=== PATIENT | female | born 1945 | race Caucasian/White ===

== ENCOUNTER 2017-07-05 10:34 | Emergency (ER) | payer MEDICARE ==
[~2017-07-05] VITALS: Ht 157.5 cm; Wt 67.8 kg
[~2017-07-05 10:34] MED LIST: CELEXA20 MG PO; COREG 12.5 MG12.5 MG PO; CRESTOR10 MG PO; GABAPENTIN300 MG PO; LEVOTHYROXINE0.05 M2 PO; LISINOPRIL/HCTZ1 TA3 PO; LOSARTAN POTASS50 MG PO; METOPROLOL TAR100 MG PO; NORVASC 10MG. T10 MG PO; OMEPRAZOLE D/R20 MG PO; PROTONIX 40MG T40 MG PO; QVAR0.08 MG/AC IH; TRICOR 145 MG145 MG PO; VITAMIN B121 TA1 PO; VITAMIN D50000 I1 PO
[2017-07-05] MEDS ORDERED: BISOPROLOL FUMA10 MG PO (10:51)
--- NOTE | 2017-07-05 11:05 | Emergency Room Report ---
History of Present Illness Time Seen by [id number] Presenting Problem in Triage Pt arrived:Ambulance Stretcher Presenting Problem:RIGHT HIP PAIN THAT RADIATES DOWN THE LEG IN TO FOOT FOR 3 DAYS. PT DENIES FALLS AND OTHER TRAUMA Onset of symptoms date/time:/ or onset unknown for:MEDICAL HX UNKNOWN Treatment Prior to Arrival: TRAMADOL AND ZOFRAN PER EMT ENROLLMENT ELIGIBILITY REPRESENTATIVE Provided by:EMT Sepsis Risk Assessment: Temp: 98.4 B/P: 127/64 MAP: 85 Pulse: 66 Resp: 18 Recent fever? N Clinical Suspician of Infection? N Mental Status: 1 - Regular (Normal Baseline) Sepsis Risk:Low Sepsis Risk Have you (or family members/close friends) recently traveled outside the [place]? N If Yes, where/when: Have you had exposure to infectious disease within the past month? N TB? Other? Specify: Patient states she has RIGHT leg pain radiating up from her foot towards her hip area she states she can barely stand and bear weight on the leg she states it's been there since Sunday she denies any falls or trauma. She also states that she has been coughing up some green phlegm recently she also states she has some nausea and is holding an emesis bag. Denies any fevers or chills he denies any whole-body ache denies any abdominal pain chest pain or headache. He states her RIGHT leg hurts when she moves moderate and achy pain. Denies fevers or chills ALLERGIES Coded Allergies: Penicillins (I-HIVES 07/05/17) Home Medications Reported Medications Rosuvastatin Calcium (Crestor) 10 MG PO QHS AMLODIPINE BESYLATE (Norvasc) 10 MG PO DAILY Lisinopril & Hctz (Lisinopril-Hctz 10-12.5 MG Tab) 2 TAB PO DAILY Carvedilol (Coreg 12.5Mg) 12.5 MG PO BID Levothyroxine Sodium 0.05 MG PO DAILY Gabapentin (Gabapentin 300MG) 300 MG PO BID Fenofibrate 145 MG PO QHS ERGOCALCIFEROL (VITAMIN D2) (Vitamin D2) 50,000 IUNITS PO SUN,SUN CITALOPRAM HYDROBROMIDE (Citalopram HBr) 20 MG PO DAILY Omeprazole 20 MG PO DAILY Beclomethasone Dipropionate (Qvar 80MCG Inhaler) 2 PUFFS IH BID Bisoprolol Fumarate 10 MG PO QHS #30 History Medical History General CAD? No Angina: Yes CO: No Hypertension? Yes Hyperlipidemia? Yes CHF? No DVT? Yes COPD? Yes Asthma? Yes Anemia? No GERD? No Gastric ulcers? No GI Bleed? No Hernia? No Thyroid Problems? Yes Hypothyroidism? Yes CVA? No Seizures? No Diabetes? No End Stage Renal Disease? No UTI? Yes Stones? Yes GB Disease: Yes Nephritic Syndrome? No Asplenia? No Hepatitis? No Sickle Cell Disease? No Arthritis? Yes Migraines? No Cataracts? No Glaucoma? No MRSA? No TB? No Anxiety? Yes Depression? Yes Cancer? No Immunization Hx DT/Tetanus > 10 Years Ago Flu [id number] Flu Season Pneumonia Received In Past Surgical Hx Previous Surgery?Y BACK SURGERY HYSTERECTOMY L FOOT GALLBLADDER X2 Appendectomy Family History Family Hx Diabetes No CAD No Hypertension Yes Hyperlipidemia Yes Cancer No TB No Social History Smoking Hx Smoker: Never Smoker Tobacco: No Alcohol Alcohol: No Review of Systems All Other Systems Reviewed and Negative Physical Exam Vital Signs Vital Signs Date Time Temp Pulse Resp B/P Pulse O2 O2 Flow FiO2 Ox Delivery Rate 07/05 1349 18 07/05 1341 98.3 67 16 138/73 98 07/05 1213 98.4 64 16 158/64 100 07/05 1138 15 07/05 1036 98.4 66 18 127/64 100 General Appearance: Nontoxic Head: Normocephalic, without obvious abnormality, atraumatic. Eyes: conjunctiva/corneas clear ENT: Mucous membranes dry. Neck: No jugular venous distention. Cardiac: regular rate and rhythm Lungs: rhonchi to auscultation bilaterally Abdomen: Nontender, Nondistended, positive bowel sounds, no rebound : No CVA tenderness Extremities: no edema Musculoskeletal: No chest wall tenderness Patient has RIGHT hip tenderness RIGHT sciatic notch tenderness she also states she has tenderness in her RIGHT foot. RIGHT foot has no ecchymosis no swelling. 2+ pulses capillary refill intact Sensation intact She has pain in the hip with straight leg raise on the RIGHT. Skin: No rashes or lesions to exposed skin. Neurologic: Alert. No gross focal deficits Psychiatric: Normal affect (Clifford GAXIOLA, Bhavik) General Appearance normal appearance Respiratory Status No: respiratory distress. Cardiovascular normal exam Neurologic alert Medical Decision Making LABS/Meds/Orders Pt receiving controlled substance in ED? Yes Comment Foot x-ray read as no fracture by radiologist she noticed at the first MTP some signs that may look like gout I did reexamine the patient's first MTP he is nontender there Chest x-ray read as no acute disease by radiologist hip and lumber Films read as arthritis by radiologist Results/Orders Laboratory Tests 07/05/17 1240: Sodium 136, Potassium 4.2, Chloride 102, Carbon Dioxide 28, BUN 25 H, Creatinine 1.3 H, Estimated Creat Clear 42 L, Estimated GFR (MDRD) 40 L, Glucose 131 H, Calcium 9.3, Total Bilirubin 0.6, AST 20, ALT 20, Alkaline Phosphatase 97, Total Protein 6.9, Albumin 3.6, Globulin 3.3 H, Albumin/ Globulin Ratio 1.1, Lipase 109, WBC 12.3 H, RBC 4.85, Hgb 12.8, Hct 39.5, MCV 81.6 L, RDW 15.0, Plt Count 252, MPV 8.2, Gran % 82.9 H, Gran # 10.2 H, Lymphocytes % 11.9, Monocytes % 3.5, Eosinophils % 1.4, Basophils % 0.3, Lymphocytes # 1.5, Monocytes # 0.4, Eosinophils # 0.2, Basophils # 0.0, PUBS MCHC 32.4, MCH 26.4 L Current Medication Orders Sig/Wenceslao Start time Last Medication Dose Route Stop Time Status Admin Morphine Sulfate 0 .STK-MED ONE 07/05 1347 DC .ROUTE Morphine Sulfate 4 MG ONCE ONE 07/05 1345 DC 07/05 IV 07/05 1346 1349 Ondansetron HCl 0 .STK-MED ONE 07/05 1121 DC .ROUTE Sodium Chloride 1,000 ML .STK-MED ONE 07/05 1121 DC IV Morphine Sulfate 0 .STK-MED ONE 07/05 1120 DC .ROUTE Morphine Sulfate 2 MG ONCE ONE 07/05 1115 DC 07/05 IV 07/05 1116 1138 Ondansetron HCl 4 MG ONCE ONE 07/05 1115 DC 07/05 IV 07/05 1116 1138 Sodium Chloride 1,000 ML .Q1H1M 07/05 1115 DC 07/05 IV 07/05 1215 1138 Sodium Chloride 10 ML PRN PRN 07/05 111 AC IV 07/06 1102 Orders Procedure Date/time Status LIPASE 07/05 110 Complete CBC WITH AUTO DIFF 07/05 110 Complete CHEM 12 PROFILE 07/05 110 Complete Departure Departure Time of Disposition 1434 Disposition DC Home or Self Care(routine) Clinical Impression Primary Impression: Bronchitis Secondary Impressions: Sciatica Qualifiers: Laterality: right Qualified Code: M54.31 - Sciatica, right side Condition STABLE Patient Instructions Acute Bronchitis, CONTROLLED SUBSTANCE-[facility], Sciatica Discharge Counseling Counseled pt/family regarding diagnosis, test results, R/B of controlled subst., medications/RX, home care, follow up needs Prescriptions Current Visit Scripts Azithromycin (Zithromycin (Z-SARAHI) 250MG Tab) 250 MG PO DAILY #6 TAB TAKE TWO (2) TABLETS ON DAY 1, THEN ONE (1) TABLET DAY #2 THRU #5 PROMETHAZINE HCL (Phenergan 12.5MG Tab (Geq)) 12.5 MG PO Q6HP PRN NAUSEA #6 TAB HYDROCODONE/ACETAMINOPHEN ([place] 5-325 Tablet) 1 TAB PO Q6HP PRN BREAKTHROUGH MOD TO SEV PAIN #10 TAB ED Critical Care Critical Care No at 1441
[2017-07-05 12:47] LABS: HEMOGLOBIN 12.8 g/dL (12.2-16.2); LYMPH # 1.5 K/mm3 (0.7-4.5); LYMPH % 11.9 % (10-50.0)
--- OUTSIDE RECORDS SUMMARY | 2017-07-05 12:54 | External Medical Summary Rpt | CCD ---
Author Author CHARLIE Address Unknown Phone [email or web address] Purpose Continuity of Care Document - 01-12-2017 through 2016
--- OUTSIDE RECORDS SUMMARY | 2017-07-05 12:54 | External Medical Summary Rpt | CCD ---
Author Author , CHARLIE GUERRA Address Unknown Phone [email or web address] [employer] Immunization Name Date Rout CVX Reac Dose Comm Prov Is Faci e tion ent ider Refu lity Give sed n Infl 09-2 0.5 Hist PD20 No PD20 uenz 0-20 mL oric 256 256 a 17 al Quad Info rmat W/Pr ion es - Sour ce Unsp ecif ied Hep 02-2 43 999 Hist H201 No H201 B, 1-20 oric adul 06 al t Info rmat ion - Sour ce Unsp ecif ied Hep 09-0 43 999 Hist H201 No H201 B, 9-20 oric adul 05 al t Info rmat ion - Sour ce Unsp ecif ied Hep 08-0 Intr 43 999 Hist H201 No H201 B, 9-20 amus oric adul 05 cula al t r Info rmat ion - Sour ce Unsp ecif ied
--- OUTSIDE RECORDS SUMMARY | 2017-07-05 12:54 | External Medical Summary Rpt | CCD ---
Author Author , CHARLIE GUERRA Address Unknown Phone [email or web address] Immunization Name Date Rout CVX Reac Dose [...]
--- OUTSIDE RECORDS SUMMARY | 2017-07-05 12:54 | External Medical Summary Rpt ---
Author Author CHARLIE Lala, JONYBRAULIO [employer] Organization [facility] [employer] Address Unknown Phone Unavailable Results Basic metabolic panel in Blood Observa Value Referen Units Interpr Notes Date tion ce etation Range Urea 7 - 18 mg/dL High No Jan 12 nitrogen informati 2016 [Mass/vol on in 10:25 AM ume] in source Serum or data Plasma Calcium 8.5 - mg/dL Normal No Jan 12 [Mass/vol 10.1 informati 2016 ume] in on in 10:25 AM Serum or source Plasma data Chloride 98 - 107 mmoL/L Normal No Jan 12 [Moles/vo informati 2016 lume] in on in 10:25 AM Serum or source Plasma data Carbon 21.0 - mmoL/L Normal No Jan 12 dioxide, 32.0 informati 2017 total on in 10:25 AM [Moles/vo source lume] in data Serum or Plasma Creatinin 0.55 - mg/dL High No Jan 12 e 1.02 informati 2016 [Mass/vol on in 10:25 AM ume] in source Serum or data Plasma Estimated 59- ML/MIN Low REFERENCE Jan 12 RANGE: 2017 glomerula >60 10:25 AM r ML/MIN/1. filtratio 73 SQUARE n rate METERSIf (GF this patient is -A merican, then multiply theresult by 1.210. Glucose 74 - 106 mg/dL High No Jan 12 [Mass/vol informati 2016 ume] in on in 10:25 AM Serum or source Plasma data Potassium 3.5 - 5.1 mmoL/L Normal No Jan 12 informati 2016 [Moles/vo on in 10:25 AM lume] in source Serum or data Plasma Sodium 136 - 145 mmoL/L Normal No Jan 12 [Moles/vo informati 2017 lume] in on in 10:25 AM Serum or source Plasma data Thyroxine (T4) free [Mass/volume] in Serum or Plasma Observa Value Referen Units Interpr Notes Date tion ce etation Range Thyroxine 0.76 - ng/dL Normal No Jan 12 (T4) 1.46 inform2016 free on in 10:25 AM [Mass/vol source ume] in data Serum or Plasma Lipid 1996 panel in Serum or Plasma Observa Value Referen Units Interpr Notes Date tion ce etation Range Cholester < 200 mg/dL No No Dec 16 ol informati informati 2016 [Moles/vo on in on in 10:25 AM lume] in source source Unspecifi data data ed specimen Cholester 40 - 60 MG/DL Normal No Jan 12 ol in HDL inform2016 on in 10:25 AM [Mass/vol source ume] in data Serum or Plasma Cholester 0 - 130 mg/dL Normal No Jan 12 ol in LDL informati 2016 on in 10:25 AM [Mass/vol source ume] in data Serum or Plasma by calculati on Triglycer 30 - 200 mg/dL High No Jan 12 trish inform2016 [Moles/vo on in 10:25 AM lume] in source Serum or data Plasma Cholester 0 - 40 No High No Jan 12 ol in informati inform2016 VLDL on in on in 10:25 AM [Mass/vol source source ume] in data data Serum or Plasma Hepatic function 2000 panel in Serum or Plasma Observa Value Referen Units Interpr Notes Date tion ce etation Range Albumin 3.4 - 5.0 gm/dL Normal No Jan 12 [Mass/vol informati 2016 ume] in on in 10:25 AM Serum or source Plasma data Alkaline 46 - 116 U/L Normal No Dec 16 phosphata 2016 se on in 10:25 AM [Enzymati source c data activity/ volume] in Serum or Plasma Bilirubin 0.0 - 0.2 mg/dL Normal No Jan 12 .direct informati 2016 [Mass/vol on in 10:25 AM ume] in source Serum or data Plasma Bilirubin 0 - 0.9 mg/dL Normal No Jan 12 .indirect informati 2017 on in 10:25 AM [Mass/vol source ume] in data Serum or Plasma Bilirubin 0.2 - 1.0 mg/dL Normal No Jan 12 .total informati 2017 [Mass/vol on in 10:25 AM ume] in source Serum or data Plasma Aspartate 15 - 37 U/L Low No Dec 16 inform2016 aminotran on in 10:25 AM sferase source [Enzymati data c activity/ volume] in Serum or Plasma Alanine 12 - 78 U/L Normal No Jan 12 aminotran informati 2016 sferase on in 10:25 AM [Enzymati source c data activity/ volume] in Serum or Plasma Protein 6.4 - 8.2 gm/dL Normal No Jan 12 [Mass/vol informati 2016 ume] in on in 10:25 AM Serum or source Plasma data Thyrotropin [Units/volume] in Serum or Plasma Observa Value Referen Units Interpr Notes Date tion ce etation Range Thyrotrop 0.358 - uIU/ml Normal No Jan 12 in 3.740 informati 2016 [Units/vo on in 10:25 AM lume] in source Serum or data Plasma
--- OUTSIDE RECORDS SUMMARY | 2017-07-05 12:54 | External Medical Summary Rpt | CCD ---
Author Author CHARLIE Address Unknown Phone [email or web address] Purpose Continuity of Care Document - 01-12-2017 through 2016
--- NOTE | 2017-07-05 13:59 | RADIOLOGY REPORT PS360 ---
CHEST-AP VIEW ONLY HISTORY: cough ORDERING PHYSICIAN: Bhavik Horton MD PATIENT AGE: 72 years COMPARISON: 07/03/2016 FINDINGS: There is mild cardiomegaly without failure. There are old right-sided rib fractures. No lobar consolidation or collapse. Lungs are clear. IMPRESSION: 1. Cardiomegaly. 2. No acute finding. 3. Old right-sided rib fracture
--- NOTE | 2017-07-05 14:01 | RADIOLOGY REPORT PS360 ---
FOOT-RT-3 VIEWS HISTORY: Right foot pain ORDERING PHYSICIAN: Bhavik Horton MD PATIENT AGE: 72 years COMPARISON: None FINDINGS: Minimal osteoarthritic change of the first metatarsophalangeal joint. There may be some minimal periarticular calcification medially with some soft tissue swelling. Mild callus is a consideration. No erosive changes are apparent however. No other significant anomalies. IMPRESSION: 1. Minimal osteoarthritis first MTP joint with questionable periarticular calcification and soft tissue swelling which may be seen with gout
--- NOTE | 2017-07-05 14:03 | RADIOLOGY REPORT PS360 ---
HIP RT 2-3V W/PELVIS IF PERFOR HISTORY: Right hip pain ORDERING PHYSICIAN: Bhavik Horton MD PATIENT AGE: 72 years COMPARISON: None FINDINGS: There are mild osteoarthritic changes of both hips with decrease in the joint space and osteophyte formation of the acetabula. No fracture or dislocation. No lytic or blastic change. IMPRESSION: Osteoarthritis of the hips
--- NOTE | 2017-07-05 14:06 | RADIOLOGY REPORT PS360 ---
EXAM: LUMBAR SPINE 5 VIEWS HISTORY: Low back pain ORDERING PHYSICIAN: Bhavik Horton MD PATIENT AGE: 72 years COMPARISON: None FINDINGS: There is minimal lumbar curvature convex right with mild endplate osteophytes in the lower thoracic spine and at L3, L4, and L5 with degenerative disc disease from L2 to S1 worse at L5-S1. There is 3 mm anterolisthesis of L4. Facet hypertrophic changes are present at L5-S1. No fracture or dislocation. No lytic or blastic change. IMPRESSION: Lumbar spondylosis with degenerative disc disease facet arthritic change and osteophyte formation as detailed above
[2017-07-05] MEDS ORDERED: NORCO 325 MG-51 TAB PO (14:40)
[2017-07-05] MEDS ORDERED: PHENERGAN12.5 M3 PO (14:40)
[2017-07-05] MEDS ORDERED: ZITHROMAX Z PA250 MG PO (14:40)
[2017-07-05 14:51] VITALS: BP 136/78
== END 2017-07-05 14:47 | disposition home or self-care (01) ==
LOC: ER 10:34
PROVIDERS: Emergency Medicine
DX: J40 Bronchitis, not specified as acute or chronic (principal); M54.31 Sciatica, right side; M25.551 Pain in right hip; M79.671 Pain in right foot; J44.9 Chronic obstructive pulmonary disease, unspecified; I10 Essential (primary) hypertension; Z88.0 Allergy status to penicillin; Z79.899 Other long term (current) drug therapy
CPT/HCPCS: J2405